=== PATIENT | male | born 1955 | race Caucasian/White ===

== ENCOUNTER 2018-11-16 08:25 | Day surgery (SDC) | payer OTHER ==
[~2018-11-16] VITALS: Ht 177.8 cm; Wt 97.2 kg
== END 2018-11-16 10:25 | disposition home or self-care (01) ==
LOC: ORSCSDS 08:25
PROVIDERS: Internal Medicine Gastroenterology
PROC: 0DBH8ZX Excision of Cecum, Via Natural or Artificial Opening Endoscopic, Diagnostic (ICD-10-PCS; principal; 2018-11-16 09:30)
PROC: 0DBK8ZX Excision of Ascending Colon, Via Natural or Artificial Opening Endoscopic, Diagnostic (ICD-10-PCS; principal; 2018-11-16 09:30)
PROC: 0DBM8ZX Excision of Descending Colon, Via Natural or Artificial Opening Endoscopic, Diagnostic (ICD-10-PCS; principal; 2018-11-16 09:30)
DX: K92.1 Melena (principal); D12.4 Benign neoplasm of descending colon; D12.0 Benign neoplasm of cecum; D12.2 Benign neoplasm of ascending colon; K57.30 Diverticulosis of large intestine without perforation or abscess without bleeding; K64.8 Other hemorrhoids
CPT/HCPCS: 88305; J2704; J7120

== ENCOUNTER 2019-04-06 05:57 | Day surgery (SDC) | payer MEDICARE, OTHER ==
[~2019-04-06] VITALS: Ht 175.3 cm; Wt 105.1 kg
[~2019-04-06 05:57] MED LIST: NEBI5 PO; PROBIOTIC; THERA1 EACH
--- NOTE | 2019-04-06 06:47 | NUR ---
Ambulatory in Day Surgery. History, Chart, Medications and Allergies reviewed before start of procedure.Lungs clear T/O to Auscultation. Patient confirms NPO status and agrees with scheduled surgery. Pre-Op teaching done. Pt verbalizes understanding.
--- NOTE | 2019-04-06 08:41 | NUR ---
ARRIVED INTO SDS DENIES PAIN ADMITS TO SOME PREASURE WANTING ICE CHIPS RECIEVED REPORT
--- NOTE | 2019-04-06 08:58 | NUR ---
UP TO BATHROOM AT THIS TIME PATIENT WELL BALANCED ON FEET ESCORTED TO BATHROOM AND SHOWED EMERGENCY CORD IF NEEDED.
--- NOTE | 2019-04-06 09:16 | NUR ---
RETURNED TO BED VSS DONE. PATIENT UNABLE TO VOID OR BM IN BATHROOM NURSE EXPLAINED MAY HAPPEN. GIVEN. CONTINUES TO C/O PREASURE AND SLIGHT PAIN. STARTED IV TORADOL PER ORDERS AND GIVEN PO PAIN RX.
--- NOTE | 2019-04-06 10:16 | NUR ---
Discharge instructions reviewed with patient. Patient verbalizes understanding. Copy given to patient to take home. Discharged via wheelchair to private car for ride home. WENT OVER DISCHARGE INSTRUCTIONS WITH BOTH AND PATIENT.
--- NOTE | 2019-04-06 10:22 | NUR ---
NOTED DISCONTINUEING IV. TWO PREVIOUS IV STARTS ARE BRUISED. TALKED WITH PATIENT ABOUT CARE AND OR ICE OR WARM PACK TO THEM.
== END 2019-04-06 22:47 | disposition home or self-care (01) ==
LOC: ORSCMMR 05:57 → ORD 07:30 → ORSCMMR 07:30
PROVIDERS: Surgery
PROC: 06BY0ZC Excision of Hemorrhoidal Plexus, Open Approach (ICD-10-PCS; principal; 2019-04-06 07:30)
DX: K64.2 Third degree hemorrhoids (principal); K64.4 Residual hemorrhoidal skin tags; K92.1 Melena; E78.5 Hyperlipidemia, unspecified; K21.9 Gastro-esophageal reflux disease without esophagitis
CPT/HCPCS: 88304; J1100; J1885; J2250; J2405; J2704; J3010; J7120